=== PATIENT | female | born 1985 | race Two or more races ===

== ENCOUNTER 2023-02-14 10:12 | Outpatient (OUT) | payer BC, SELFPAY ==
--- NOTE | 2023-02-14 10:28 | XR_ITS ---
The [address] [address] Patient Name: TATIANA OROZCO MRN: [id number] date: 1985 Sex: F Assigned Patient Location: [facility] Current Patient Location: [facility] Accession/Order Number: [id number] Exam Date: 02/14/2023 10:28 Report Date: 02/15/2023 14:58 At the request of: CARMEN SOUZA Procedure: XR ankle RT min 3V EXAM: XR ankle RT min 3V HISTORY: RIGHT ANKLE PAIN COMPARISON: 01/24/2023. TECHNIQUE: Routine views of the XR ankle RT min 3V FINDINGS/ IMPRESSION: 1. Normal mineralization. 2. No acute fractures. Plate and screw fixation of the distal fibula with transsyndesmotic suture anchors. Maintained alignment. No evidence for hardware complication. Minimal residual distal fibular fracture lucency is noted. Punctate plantar calcaneal spur. 3. Normal joint spacing. 4. Unremarkable soft tissues. Electronically authenticated by: RADHA GARRETT Date: 02/15/2023 14:58
== END 2023-02-14 10:13 ==
LOC: RAD 10:13
PROVIDERS: PCP Family Medicine; Visit Provider Physician Assistant
DX: S82.61XA Displaced fracture of lateral malleolus of right fibula, initial encounter for closed fracture (principal); M25.571 Pain in right ankle and joints of right foot
CPT/HCPCS: 73610

== ENCOUNTER 2023-03-05 09:28 | Outpatient (OUT) | payer BC, SELFPAY ==
--- NOTE | 2023-03-05 09:34 | XR_ITS ---
The [place] [id number] Patient Name: TATIANA OROZCO MRN: [id number] date: 1985 Sex: F Assigned Patient Location: [facility] Current Patient Location: [facility] Accession/Order Number: [id number] Exam Date: 03/05/2023 09:35 Report Date: 03/05/2023 10:14 At the request of: MATHEUS JAMES Procedure: XR ankle RT min 3V PROCEDURE: XR ankle RT min 3V HISTORY: RIGHT ANKLE PAIN COMPARISON: XR ankle right 02/14/2023 FINDINGS: BONES:Mechanical fusion of distal fibula via a lateral plate and screws. Prior band effusion of the distal syndesmosis. SOFT TISSUES:Mild soft tissue swelling. EFFUSION:None visible. OTHER: Negative. IMPRESSION: 1. Stable surgical changes without evidence of hardware failure or change in alignment. 2. Subtle, visible fracture line within distal fibula remains. Electronically authenticated by: FARIDA LÓPEZ Date: 03/05/2023 10:14
== END 2023-03-05 09:29 ==
LOC: RAD 09:28
PROVIDERS: PCP Family Medicine; Visit Provider Student in an Organized Health Care Education/Training Program
DX: S82.831D Other fracture of upper and lower end of right fibula, subsequent encounter for closed fracture with routine healing (principal)
CPT/HCPCS: 73610

== ENCOUNTER 2023-04-02 09:18 | Outpatient (OUT) | payer BC, SELFPAY ==
--- NOTE | 2023-04-02 09:24 | XR_ITS ---
The [address] [address] Patient Name: TATIANA OROZCO MRN: [id number] date: 1985 Sex: F Assigned Patient Location: [facility] Current Patient Location: [facility] Accession/Order Number: [id number] Exam Date: 04/02/2023 09:23 Report Date: 04/02/2023 18:57 At the request of: KELLI HOWELL Procedure: XR ankle RT min 3V PROCEDURE: XR ankle RT min 3V COMPARISON: 03/05/2023 HISTORY: RIGHT ANKLE PAIN FINDINGS: BONES:No acute fracture or dislocation. Remote distal fibular fracture fixed with a lateral plate and multiple screws. Remote fusion across the tibiofibular syndesmosis. No mechanical failure SOFT TISSUES:Mild to moderate diffuse soft tissue swelling EFFUSION:None visible. OTHER: Negative. XR/XR ankle RT min 3V IMPRESSION: Stable fibular fracture with internal fixation Electronically authenticated by: SUMEET PIZARRO Date: 04/02/2023 18:57
== END 2023-04-02 09:19 | disposition home or self-care (01) ==
LOC: RAD 09:18
PROVIDERS: PCP Family Medicine; Visit Provider Podiatrist Foot & Ankle Surgery
DX: S82.61XD Displaced fracture of lateral malleolus of right fibula, subsequent encounter for closed fracture with routine healing (principal)
CPT/HCPCS: 73610

== ENCOUNTER 2025-09-05 17:51 | Emergency (ER) | payer BC, SELFPAY ==
--- OUTSIDE RECORDS SUMMARY | 2024-10-21 04:30 | XMS_ITS ---
Author Organization The [facility] in [place] Address [address] [place] [address] Care Team Providers Care Oracle Bpm Consultant Name Role Phone Edwige GALAN, Jenny Primary Care Provider Cl Wilder Unavailable [phone] REASON FOR VISIT panniculectomy Encounters Encounter Location Date Provider Diagnosis The [facility] [address] [address] 10/21/2024 Cl Regan Plan Of Treatment No Information Progress Notes * Kerri BERRIOS FDOB: [birth year] (40 yo F)Acc No.[id number]:10/21/2024 UNLOCKED PROGRESS NOTE Patient:?Kerri BERRIOS :?Cl Regan, DODOB:1985???Age: 39 Y???Sex:FemaleDate:10/21/2024Phone:[phone]:[address], [facility]Kon:Jenny Gibbons MD Subjective: * Chief Complaints: * 1 . Panniculectomy. * Medical History: Objective: * Vitals: Assessment: Plan: * Treatment: * * Electronic signature of Cl Regan DO on 09/05/2025 at 07:00 PM ESTSign off status: PendingVisit Status:?CANC (Cancelled) * Provider: Blanco Regan DO Date: 0 10/21/2024 Generated for Printing/Faxing/eTransmitting on:?09/05/2025 07:00 PM EST
--- OUTSIDE RECORDS SUMMARY | 2024-11-11 03:30 | XMS_ITS ---
Author Organization The [facility] in [place] Address [address] [place] [address] Care Team Providers Care Master Naval Parachutist Name Role Phone Edwige GALAN, Jenny Primary Care Provider Cl Wilder Unavailable [phone] REASON FOR VISIT panniculectomy Encounters Encounter Location Date Provider Diagnosis [facility] [address] [address] 11/11/2024 Cl Regan Plan Of Treatment No Information Progress Notes * Kerri BERRIOS FDOB: [birth year] (40 yo F)Acc No.[id number]:11/11/2024 UNLOCKED PROGRESS NOTE Patient:?Kerri BERRIOS :?Cl Regan, DODOB:1985???Age: 39 Y???Sex:FemaleDate:11/11/2024Phone:[phone]:[address], [facility]Xbm:Jenny Gibbons MD Subjective: * Chief Complaints: * 1 . Panniculectomy. * Medical History: Objective: * Vitals: Assessment: Plan: * Treatment: * * Electronic signature of Cl Regan DO on 09/05/2025 at 07:00 PM ESTSign off status: PendingVisit Status:?CANC (Cancelled) * Provider: Blanco Regan DO Date: 0 11/11/2024 Generated for Printing/Faxing/eTransmitting on:?09/05/2025 07:00 PM EST
[2025-09-05 17:58] VITALS: BP 116/78; PULSE 58; TEMP 37.2; O2SAT 98; BMI 39.5
--- NOTE | 2025-09-05 18:07 | XR_ITS ---
The [address] [address] Patient Name: TATIANA OROZCO MRN: [id number] date: 1985 Sex: F Assigned Patient Location: ER Current Patient Location: ER Accession/Order Number: [id number] Exam Date: 09/05/2025 18:20 Report Date: 09/05/2025 18:30 At the request of: FABIOLA MORENO MD Procedure: XR shoulder RT min 2V RIGHT SHOULDER - - 3 views CLINICAL HISTORY: pain COMPARISON: None FINDINGS: Joint spaces appear maintained without acute bony process. XR/XR shoulder RT min 2V IMPRESSION: No acute bony process. Impression dictated by: Judith Gale Jr.OMedardo 09/05/2025 6:30 PM Dictation Location: [place] [address] Electronically authenticated by: [id number] Y Date: 09/05/2025 18:30
--- OUTSIDE RECORDS SUMMARY | 2025-09-05 19:00 | XMS_ITS | Patient Health Record ---
Author Organization The [facility] in [place] Address [address] [address] Care Team Providers Care Endless Steamer Tender Name Role Phone Jenny Gibbons MD Primary Care Provider Cl Wilder [phone] Allergies Allergen (clinical drug ingredient) Drug/Non Drug Allergy documented on EMR Reaction Allergy Type Onset Date Status Vaccine product containing B ordetella pertussis antigen (medicinal product) Pertussis Vaccines Unknown Drug Al lergy Active Reason For Referral No Information Medications Medication SIG (Take, Route, Frequency, Duration) Notes Start Date End Date Status Vitamin D 50 MCG (1999) 1 tablet Orally Once a day Active Social History Tobacco Use: Social History Observation Description Date Details (start date - stop date) Never Smoker NA - NA Tobacco Use/Smoking Question Answer Notes Patient is a nonsmoker Problems Problem Type SNOMED Code ICD Code Onset Dates Problem Status W/U Status Risk Notes Problem Closed fracture of l ateral malleolus (63048955) Displaced fracture of lateral malleolus of right fibula, initial encounter for closed fracture (S82.61XA) ActiveconfirmedProblemClosed fracture of lateral malleolus of right fibula (75135332406852486)Displaced fracture of lateral malleolus of right fibula, subsequent encounter for closed fracture with routine healing (S82.61XD)Active confirmedProblemSprain of distal tibiofibular ligament (97556592)Sprain of tibiofibular ligament of right ankle, subsequent encounter (S93.431D)Active confirmed Plan Of Treatment No Information Insurance Providers Payer Name Payer Address Payer Phone Subscriber Number Group Number Insured Name Patient Relationship to Insured Coverage Start Date Coverage End Date BCBS OUT OF STATE [address] [place] [address] [id number] Kerri Berrios Self - patient is the insured Medical (General) History Medical History History ICD Code Other fracture of upper and lower end of right fibula, subsequent encounter for closed fracture with routine healing S82.831D Surgical History Surgery Date(Month/Year) ORIF right ankle with syndesmotic stabil ization 01/24/2023
--- OUTSIDE RECORDS SUMMARY | 2025-09-05 19:00 | XMS_ITS | Clinical Summary ---
Author Organization [facility] Address [address] [place] [address] Care Team Providers Care Business Manager [employer] Name Role Phone [facility], Other Unavailable [phone] Social History Tobacco UseTypesPacks/DayYears UsedDateSmoking Tobacco: Never Assessed CommentsUnknownSex and Gender InformationValueDate RecordedSex Assigned at Not on fileLegal UtdObuomg46/01/2018 7:09 AM ESTGender OamzvgsqCofgro26/01/2018 7:11 AM ESTSexual OrientationNot on file Plan of Treatment Health MaintenanceDue DateLast DoneCommentsHEPATITIS C VIRUS MOYXESHVG1983 JAEYNLU30 1985HIV SCREENING VYGZHKGRMJ30/18/1998HEP B VACCINE (1 of 3 - 19+ 3-dose series)2002TDAP (ADULT)2002CERVICAL CANCER SCREENING KVFQXVZEIC18/18/2004HPV VACCINE (1 - 3-dose SCDM series)2010LIPID NEQHGROJX38/18/2023MAMMOGRAM SCREENING IVNAWZWJMT25/18/2023OVID-19 VACCINE ( season)2025INFLUENZA VACCINE (#1)2025PNEUMOCOCCAL VACCINE SERIESAged OutNo longer eligible based on patient's age to complete this topic Insurance * Guarantor: Kerri BerriosAccount TypeRelation to PatientDate of BirthPhone Billing JbsvqcjDipheQtois1985 [address] [place] [address] on file Care Teams Team MemberRelationshipSpecialtyStart DateEnd Date [facility], Other [facility] [address] [place] [address] PCP - Transplant Coordinator10/17/17
--- OUTSIDE RECORDS SUMMARY | 2025-09-05 19:00 | XMS_ITS | Clinical Summary ---
Author Organization [facility] tem Address [facility] [address] [place] [address] Care Team Providers Care Yarn Texture Machine Operator Name Role Phone Jenny Gibbons MD Primary Care Provider [phone] Allergies Active AllergyReactionsCriticalityNoted DateCommentsPertussis VaccinesOther (See Comments)07/03/2023 Medications No known medications Active Problems No known active problems Encounters DateTypeDepartmentCare WubaTlddypwujtc75/04/2025 7:34 PM EST - 07/20/2025 8:41 PM ESTEmergency [facility] [address] [place] [address] Acute nonintractable headache, unspecified headache type (Primary Dx) Discharge Disposition: Home07/20/2025Travelfrom Last 3 Months Social History Tobacco UseTypesPacks/DayYears UsedDateSmoking Tobacco: NeverSmokeless Tobacco: NeverAlcohol UseStandard Drinks/WeekCommentsYes0 (1 standard drink = 0.6 oz pure alcohol)occasionalAUDIT-CAnswerDate RecordedFrequency of Alcohol Consumption Never10/25/2018Average Number of DrinksNot on file10/25/2018Frequency of Binge DrinkingNot on file10/25/2018ChildcareAnswerDate RecordedChildcareUnknown 02/25/2019EmploymentAnswerDate VcxwfxuhBcbtcdulfsQcuojqo12/12/2019Hunger ScreeningAnswerDate RecordedWithin the past 12 months we worried whether our food would run out before we got money to buy more.Never True07/20/2025Within the past 12 months the food we bought just didn't last and we didn't have money to get more.Never True07/20/2025Purpose - LifeAnswerDate RecordedPurpose and direction in suvlKmvleab84/11/2021CommentsNoSex and Gender Information ValueDate RecordedSex Assigned at BirthNot on fileLegal EarNzmayq42/06/2015 11:43 AM EDTGender IdentityNot on fileSexual OrientationNot on file Last Filed Vital Signs Vital SignReadingTime TakenCommentsBlood Vglntlwt236/8607/20/2025 8:35 PM EST Nzixw873707/20/2025 8:35 PM OOQPluzhnjzbwf73.9 ??C (98.4 ??F)07/20/2025 7:18 PM ESTRespiratory Zzbg207409/19/2024 8:35 PM ESTOxygen Dlfexdrzsv54%07/20/2025 8:35 PM ESTInhaled Oxygen Concentration--Dmeftp337.3 kg (230 lb)07/20/2025 7:18 PM XYIQubbzf865.6 cm (5' 4 )07/20/2025 7:18 PM ESTBody Mass Index39.4807/20/2025 7:18 PM EST Plan of Treatment Health MaintenanceDue DateLast DoneCommentsDepression Kmrfnsxbz59/18/1995Adult BMI Follow Up Plan2001DTaP,Tdap and Td Vaccines (1 - Tdap)2002 Influenza Ddaovrs3905/17/2025dult BMI Yuggsxrvm66Tobacco Vskssrnzp08 Medical Devices Not on file Insurance Care Teams Team MemberRelationshipSpecialtyStart DateEnd Date Jenny Gibbons MD [address] [address] PCP - [facility]ally Ergzfnah92/18/23
--- OUTSIDE RECORDS SUMMARY | 2025-09-05 19:00 | XMS_ITS | Clinical Summary ---
Author Organization [facility] Address [address], [address] [place] [address] Care Team Providers Care Chucking Lathe Operator Name Role Phone Jenny Gibbons MD Primary Care Provider [phone] Allergies Active AllergyReactionsCriticalityNoted DateCommentsPertussis VaccinesOther (See Comments)07/03/2023 Other Reaction(s): Other (See Comments) Medications MedicationSigDispense QuantityRefillsLast FilledStart DateEnd DateStatus NONFORMULARY Vaginal probioticActive Multiple Vitamins-Minerals (THERAPEUTIC MULTIVITAMIN-MINERALS) tablet Take 1 tablet by mouth dailyActive Active Problems No known active problems Family History Medical HistoryRelationNameCommentsNo Known ProblemsFatherNo Known Problems MotherBreast CancerPaternal GrandmotherOvarian CancerNeg HxStrokeNeg HxRelation NameStatusCommentsFatherAliveMotherAlivePaternal GrandmotherDeceased Social History Tobacco UseTypesPacks/DayYears UsedDateSmoking Tobacco: NeverSmokeless Tobacco: NeverAlcohol UseStandard Drinks/WeekCommentsNot Currently0 (1 standard drink = 0.6 oz pure alcohol)[facility] UtilitiesAnswerDate RecordedIn the past 12 months has the electric, gas, oil, or water [employer] threatened to shut off services in your home?No09/23/2024Overall Financial Resource Strain (CARDIA)AnswerDate Recorded How hard is it for you to pay for the very basics like food, housing, medical care, and heating?Not hard at all01/13/2024HQ-2AnswerDate RecordedPHQ-9 Total Gvuij827Hunger Vital SignAnswerDate RecordedWithin the past 12 months, you worried that your food would run out before you got the money to buymore. Never true09/23/2024Within the past 12 months, the food you bought just didn't last and you didn't have money to get more.Never true09/23/2024PRAPARE - TransportationAnswerDate RecordedIn the past 12 months, has lack of transportation kept you from medical appointments or from getting medications?No 09/23/2024In the past 12 months, has lack of transportation kept you from meetings, work, or from getting things needed for daily living?No09/23/2024 Housing Stability Vital SignAnswerDate RecordedUnable to Pay for Housing in the Last YearNot on file01/13/2024Number of Places Lived in the Last YearNot on file 01/13/2024In the last 12 months, was there a time when you did not have a steady place to sleep or slept in [facility] (including now)?No01/13/2024Housing Stability Vital SignAnswerDate RecordedIn the last 12 months, was there a time when you were not able to pay the mortgage or rent on time?Yes09/23/2024In the past 12 months, how many times have you moved where you were living? At any time in the past 12 months, were you homeless or living in a senior care (including now)?No09/23/2024Food InsecurityAnswerDate RecordedWithin the past 12 months, you worried that your food would run out before you got the money to buy more.Within the past 12 months, the food you bought just didn't last and you didn't have money to get more.CommentsNoSex and Gender InformationValueDate RecordedSex Assigned at BirthNot on fileLegal Sex Ylfoxf3401/07/2024 4:13 PM EDTGender IdentityNot on fileSexual OrientationNot on file Last Filed Vital Signs Vital SignReadingTime TakenCommentsBlood Znlfyahz248/8001/05/2025 1:25 PM EST Pulse--Temperature--Respiratory Rate--Oxygen Saturation--Inhaled Oxygen Concentration--Idckts09.1 kg (214 lb)09/24/2024 1:25 PM XHUQzdprb815.6 cm (5' 4 )09/24/2024 1:25 PM ESTBody Mass Index36.7309/24/2024 1:25 PM EST Plan of Treatment Health MaintenanceDue DateLast DoneCommentsVaricella vaccine (1 of 2 - 13+ 2- dose series)1996DTaP/Tdap/Td vaccine (1 - Tdap)2002Hepatitis B vaccine (1 of 3 - 19+ 3-dose series)2002Diabetes dssonp2609/02/2018Breast cancer qtpakq4909/02/20239474Xjbcdi55/18/2023Flu vaccine (#1)04/16/2025OVID-19 Vaccine ( - season)2025Depression Xmqrub07601/04/2025, 09/23/2024HIV swsxwjQwuguebsf21/29/2024Hepatitis C abxvsmDisinzblh95/29/2024HPV vaccine (No Doses Required)CompletedHepatitis A vaccineAged OutNo longer eligible based on patient's age to complete this topicHib vaccineAged OutNo longer eligible based on patient's age to complete this topicMeningococcal (ACWY) vaccineAged OutNo longer eligible based on patient's age to complete this topicMeningococcal B vaccineAged OutNo longer eligible based on patient's age to complete this topicPneumococcal 0-49 years VaccineAged OutNo longer eligible based on patient's age to complete this topicPolio vaccineAged OutNo longer eligible based on patient's age to complete this topic Procedures Procedure NamePriorityDate/TimeAssociated DiagnosisCommentsHIV SCREENRoutine 01/13/2024 7:16 PM EDT Routine screening for STI (sexually transmitted infection) HEPATITIS C FHEATDOMEhlbmmj32/29/2024 7:16 PM EDT Routine screening for STI (sexually transmitted infection) from Last 3 Months or Most Recently Relevant to Health Maintenance Results * Hepatitis C Antibody (01/13/2024 7:16 PM EDT)ComponentValueRef RangeTest MethodAnalysis TimePerformed AtPathologist SignatureHepatitis C AbNONREACTIVE JYRAHJAOZEE70/29/2024 7:16 PM EDTMERCY LABORATORIESComment: ? The hepatitis C procedure used in our laboratory is a Chemiluminescent test specific for three recombinant HCV antigens. ??A negative anti-HCV result indicates that the antibodies to hepatitis C virus are not present at this time. Individuals with reactive anti-HCV should be considered infected and infectious until proven otherwise. ??Confirmation of all equivocal or reactive results is recommended by ordering HCV RNA by PCR. Specimen (Source)Anatomical Location / LateralityCollection Method / Volume Collection TimeReceived TimeBloodBLOOD SPECIMEN / Kqdzfwb7701/13/2024 7:16 PM EDT 01/13/2024 7:16 PM EDT Narrative Authorizing ProviderResult TypeResult StatusJuevangelina Roberts ChapelN - [facility] ORDERABLESFinal ResultPerforming OrganizationAddressCity/State/ZIP CodePhone Number [facility] [address] [place] [address], [facility] [phone] [place] [address], [facility] [phone] * HIV Screen (01/13/2024 7:16 PM EDT)ComponentValueRef RangeTest MethodAnalysis TimePerformed AtPathologist SignatureHIV Ag/OfTLDCDNGVKEWMWQUEWTDVTZ44/29/2024 7:16 PM EDTMERCY LABORATORIESComment: No laboratory evidence of HIV infection. ??If acute HIV infection is suspected, consider testing for HIV-1 RNA. Specimen (Source)Anatomical Location / LateralityCollection Method / Volume Collection TimeReceived TimeBLOOD SPECIMEN / Cmckcyx4201/13/2024 7:16 PM EDT 01/13/2024 7:16 PM EDT Narrative Authorizing ProviderResult TypeResult StatusJustChillic[facility] - CNMIMMUNGREENWOOD [facility] ORDERABLESFinal ResultPerforming OrganizationAddressCity/State/ZIP CodePhone Number [facility] [address] [place], [place] [id number], [facility] [phone] Single Touch Systems Risk I/O [address] [place] [address], [facility] [phone] from Last 3 Months or Most Recently Relevant to Health Maintenance Insurance Care Teams Team MemberRelationshipSpecialtyStart DateEnd Date Jenny Gibbons MD PCP - GeneralFamily Medicine01/13/24
--- OUTSIDE RECORDS SUMMARY | 2025-09-05 19:00 | XMS_ITS | Clinical Summary ---
Author Organization [facility] Address [address] [place] [address] Care Team Providers Care Catalogue And Special Products Manager Name Role Phone Unavailable Primary Care Provider Unavailabl e Allergies Active AllergyReactionsCriticalityNoted DateCommentsPertussis Qgzaidxq84/18/2023 Other Reaction(s): Other (See Comments) Medications MedicationSigDispense QuantityRefillsLast FilledStart DateEnd DateStatus cholecalciferol (Vitamin D-3) 25 MCG (1000 UT) capsule Take 50 mcg by mouth in the morning.01/24/2023ctive Adipex-P 37.5 MG tablet 1 (one) time each day at the same time.09/11/2022ctive senna (Senokot) 8.6 MG tablet Take 1 tablet by mouth 2 (two) times a day as needed for constipation.01/24/2023 Active azithromycin (Zithromax) 250 MG tablet Indications:BronchitisTAKE 1 TABLET BY MOUTH IN THE MORNING FOR 5 DAYS 6 tablet 10/07/2023ctive Active Problems ProblemNoted DateDiagnosed DateCarpal tunnel syndrome of right wrist07/08/2023 Assessment & Plan (07/08/2023 11:07 AM EDT): Night time cock up wrist spint Finish Naprosyn If NB after after 2 weeks consider EMG Intermittent pain and swelling of hand07/08/2023Essential rgzouddprisp84/19/2023 History of gwmulbfuljpd16/19/2023Morbid (severe) obesity due to excess calories 07/04/2023 Social History Tobacco UseTypesPacks/DayYears UsedDateSmoking Tobacco: NeverSmokeless Tobacco: Never Tobacco Cessation:Counseling Given: Not Answered CommentsUnknownSex and Gender InformationValueDate RecordedSex Assigned at BirthNot on fileLegal MkpBdqmsp90/15/2023 6:43 PM EDTGender IdentityNot on fileSexual OrientationNot on file Last Filed Vital Signs Vital SignReadingTime TakenCommentsBlood Kzgpbokj898/8807/08/2023 10:52 AM EDT Irakq476907/08/2023 10:52 AM EDTTemperature--Respiratory Rate--Oxygen Saturation 98%07/08/2023 10:52 AM EDTInhaled Oxygen Concentration--Gbrjqk996 kg (236 lb) 07/08/2023 10:52 AM ZOPAzfhdh324.6 cm (5' 4 )07/08/2023 10:52 AM EDTBody Mass Index40.511 10:52 AM EDT Plan of Treatment Not on file Insurance
--- NOTE | 2025-09-05 19:13 | ED_ITS ---
HPI HPI - Extremity Injury (Upper) General Chief Complaint: Extremity Injury, Upper Stated Complaint: FALL Time Seen by Provider: 09/05/25 19:03 Source: patient Mode of arrival: walk-in History of Present Illness HPI narrative: Patient is a 40-year-old female presents to the ER with concerns of right anterior shoulder pain. Patient states she was out celebrating her birthday, sober, when she tripped on a sidewalk landing on her right shoulder. Patient noted some pain at the time of the event but did not think much of it. Today she tried to go to the gym and noticed pain in her shoulder while getting dress ed and doing certain lifting activities. She denies any neck pain or head injury. She denies any radicular symptoms. She is able to localize pain to the proximal bicep insertion and posterior shoulder. She believes she may have fallen with her arm slightly abducted. She does not report any loss of consciousness and otherwise appears to be feeling well but was concerned with shoulder pain while trying to lift at the local gym earlier today. Patient appears nontoxic in no acute distress. She is right-hand dominant MD complaint: injury to: Reports right and shoulder Other Extremity Injury: Right: shoulder Hand dominance: right Place: Reports outdoors Severity: moderate Exacerbating factors: Reports movement of extremity Context: Reports fall Associated symptoms: Reports denies other symptoms; Denies weakness, numbness or neck pain Treatments prior to arrival: Denies cold therapy Related Data Previous Rx's ?Medication ?Instructions ?Recorded methylprednisolone 4 mg tablets in 4 mg PO DAILY 6 day s #21 ea 09/05/25 a dose pack (Medrol (Jon)) Allergies Allergy/AdvReac Type Severity Reaction Status Date / Time Pertussis Vaccines Allergy Severe Seizure Verified 09/05/25 18:04 Review of Systems ROS Constitutional Denies: fever or chills Eyes Denies: change in vision or blurry vision Ears, nose, mouth, and throat Denies: throat pain, neck pain or throat swelling Cardiovascular Denies: chest pain or palpitations Respiratory Denies: shortness of breath or cough Gastrointestinal Denies: abdominal pain, nausea or vomiting Genitourinary Denies: painful urination or urinary frequency Musculoskeletal Reports: neck pain, extremity pain and joint pain ( right shoulder); Denies: back pain Integumentary/Breast Denies: rash or itching Neurological Denies: headache or numbness in extremities Psychiatric Denies: anxiety or mood swings PFSH PFSH Social History Little interest or pleasure in doing things: not at all Feeling down, depressed, or hopeless: not at all Exam Narrative Exam Narrative: Nurse's notes and vital signs reviewed. Patient is not hypoxic. General: The patient appears well and in no apparent distress. Patient is resting comfortably on cart. Skin: Warm, dry, no pallor noted. Head: Normocephalic, atraumatic Eye: Normal conjunctiva Respiratory: Patient is in no distress Neck: No midline cervical neck tenderness no trapezial tenderness. Painless range of motion noted. Musculoskeletal: The right shoulder shows no obvious deformity. There was no swelling noted. The patient had full range of motion despite pain, pain with passive 90 degrees of abduction and 90 degrees of forward flexion along with pain on terminal internal rotation at L2. Pain is located to the anterior shoulder. The patient had tenderness noted on the anterior shoulder at the proximal biceps tendon insertion of the long head. There is no AC joint tenderness. Positive Yergason's, positive speeds test, positive [place]'s and positive anterior apprehension. No visible bruising. Rotator cuff and deltoid strength is 5 out of 5 with minimal soreness on empty can testing. Negative M[place]uley negative Neer's. The patient had no tenderness in the anatomical snuff box of the wrist. The patient had no pain to the elbow or wrist. Pulses are intact radial 2+. There was no deficit at the elbow or wrist the patient has normal capillary refill to all distal digits. The patient has no evidence of cyanosis or mottling. The patient is able to flex and extend all digits without difficulty. Neurological: Alert and oriented x4, normal sensory, normal motor Psychiatric: Cooperative Constitutional Vital Signs, click to edit/add: Last Vital Signs Temp 99.0 F 09/05/25 17:58 Pulse 58 L 09/05/25 17:58 Resp 16 09/05/25 17:58 BP 116/78 09/05/25 17:58 Pulse Ox 98 09/05/25 17:58 O2 Del Method Room Air 09/05/25 17:58 Course Vital Signs Vital signs: Vital Signs Temperature 99.0 F 09/05/25 17:58 Pulse Rate 58 L 09/05/25 17:58 Respiratory Rate 16 09/05/25 17:58 Blood Pressure 116/78 09/05/25 17:58 Pulse Oximetry 98 09/05/25 17:58 Oxygen Delivery Method Room Air 09/05/25 17:58 Temperature 99.0 F 09/05/25 17:58 Pulse Rate 58 L 09/05/25 17:58 Respiratory Rate 16 09/05/25 17:58 Blood Pressure 116/78 09/05/25 17:58 Pulse Oximetry 98 09/05/25 17:58 Oxygen Delivery Method Room Air 09/05/25 17:58 MDM - Extremity Injury (Upper) MDM Narrative Medical decision making narrative: Patient presents with concerns of right shoulder pain status post fall. She did not report significant pain the night happened but noted increased soreness today with attempting to lift and go for a workout. We discussed her symptoms and exam along with x-ray. No evidence of fracture. Cannot rule out the possibility of biceps tendon injury or SLAP tear. She does not have any visible deformity but pain is reproducible. We have recommended ice rest gentle range of motion to prevent frozen shoulder and avoid heavy lifting until symptoms improve. She was given Toradol IM here for inflammation and will be started on a Medrol Dosepak tomorrow with risks and benefits discussed. Patient encouraged to follow-up with orthopedics or her family doctor for reevaluation as further treatments may be needed if symptoms do not improve. Patient was thankful for time spent at bedside and had no further concerns or questions. The patient is to followup with orthopedics or primary care physician in next 5- 7 days or to return to the emergency department should any of the signs or symptoms worsen or new symptoms develop. Patient had questions answered. The patient agrees with the following Diagnosis and Treatment plan and the patient will be discharged home. Differential Diagnosis Differential diagnosis: Likely dislocation of shoulder and fracture of humerus Discharge Plan Discharge Chief Complaint: Extremity Injury, Upper Clinical Impression: Acute pain of right shoulder Patient Disposition: Home, Self-Care Time of Disposition Decision: 19:13 Condition: Good Mode of Transportation: Private Vehicle Prescriptions / Home Meds: New methylprednisolone [Medrol (Jon)] 4 mg tablets,dose pack 4 mg PO DAILY 6 Days Qty: 21 0RF Rx Instructions: Take as directed Print Language: Citizen Of [place] Instructions: Shoulder Pain (ED) Additional Instructions: Please try to contact orthopedic office tomorrow to discuss follow-up and possibly 1 week. You could also see your family doctor if needed. Referrals: JOSY BRIGHT [Primary Care Provider, Family Practice] - 1 week HAJA KHAN [Physician, Family Practice] - 1 week
[2025-09-05] MEDS: KETOROLAC TROMETHAMINE 60 MG/2 ML VIAL IM (19:25)
== END 2025-09-05 19:36 | disposition home or self-care (01) ==
PROVIDERS: Emergency Provider Emergency Medicine; PCP Family Medicine
DX: M25.511 Pain in right shoulder (principal)
CPT/HCPCS: 73030; 96372; 99284; J1885